=== PATIENT | female | born 1955 | race Hispanic/Latino ===

== ENCOUNTER 2017-11-22 11:22 | Outpatient (CLI) | payer OTHER | END 2017-11-22 11:23 | disposition home or self-care (01) | LOC: BICMAMMO 11:22 | PROVIDERS: ATTEND Family Medicine | DX: Z12.31 Encounter for screening mammogram for malignant neoplasm of breast (principal) | CPT/HCPCS: 77063; 77067 ==

== ENCOUNTER 2017-11-29 12:30 | Outpatient (CLI) | payer OTHER | END 2017-11-29 12:31 | disposition home or self-care (01) | LOC: BICMAMMO 12:30 | PROVIDERS: ATTEND Family Medicine | DX: N63.10 Unspecified lump in the right breast, unspecified quadrant (principal) | CPT/HCPCS: G0279 ==